=== PATIENT | male | born 1975 | race Caucasian/White ===

== ENCOUNTER 2018-09-04 19:22 | Outpatient (REF) | payer BC, SELFPAY ==
[2018-09-04 20:00] LABS: Abs Immature Grans 0.02 k/cumm (0.0-0.09); Absolute Basophil Count 0.03 k/cumm (0.0-0.2); Absolute Eosinophil Count 0.12 k/cumm (0.0-0.7); Absolute Lymphocyte Count 2.11 k/cumm (1.2-3.4); Absolute Monocyte Count 0.53 k/cumm (0.11-0.7); Basophils % 0.4; Eosinophils % 1.6; HGB 16.3 g/dL (13.5-17.5); Immature Grans % 0.3; Lymphocytes % 27.4; Mean Corp. HGB Concentration 34.7 g/dL (32.0-36.0); Mean Corpuscular Hemoglobin 30.8 pg (27.0-33.0); Mean Corpuscular Volume 88.7 fL (80-95); Mean Platelet Volume 10.6 fL (8.0-11.0); Monocytes % 6.9; Neutrophils % 63.4; Platelet Count 278 x1000/uL (130-400); RBC Distribution Width 13.3 % (11.8-14.1); White Blood Cell Count 7.71 k/cumm (4.4-10.8)
[2018-09-04 20:42] LABS: Anion Gap 11.3 mmol/L (3-11); BUN 19 mg/dL (7-18); CO2 27.7 mmol/L (21.0-32.0); Calcium 9.4 mg/dL (8.5-10.1); Chloride 104 mmol/L (98-107); Glucose 112 mg/dL (70-100); Potassium 3.7 mmol/L (3.5-5.1); Sodium 143 mmol/L (136-145); TSH (W/Ref FT4) 1.24 uIU/mL (0.358-3.74); Vitamin B12 586 pg/mL (193-986)
[2018-09-04 20:50] LABS: Folate > 20.0 ng/mL (8.6-20.0)
== END 2018-09-04 19:42 ==
LOC: NCHCN 19:22
PROVIDERS: PCP Nurse Practitioner; Visit Provider Nurse Practitioner Family
DX: R20.2 Paresthesia of skin (principal)
CPT/HCPCS: 80048; 82607; 82746; 84443; 85025

== ENCOUNTER 2019-07-20 13:52 | Emergency (ER) | payer BC, SELFPAY ==
[2019-07-20 14:06] VITALS: BP 133/76; PULSE 62; RESP 18; TEMP 36.6; O2SAT 97
--- NOTE | 2019-07-20 14:22 | ED.GENADUL_ITS ---
Discharge Plan Disposition Patient Disposition: HOME Discharge Details Chief Complaint: Orthopedic Clinical Impression: Hand pain, right, Pain of right forearm, Skin callus Primary Care Provider: Maria Del Carmen Redd ED Provider: Robert Schmidt Home Meds and New Rx's Prescriptions: No Action multivitamin [Daily Multi-Vitamin] 1 EACH tablet 1 tab PO DAILY RF: 0 Discharge Instructions Additional Instructions: Please use hand moisturizer daily for skin cracking and callus. Use wrist splint over the next 1 to 2 weeks. Avoid heavy lifting and use of the right hand for the next 1 week. Please contact your primary care physician to arrange follow-up. Return to the ER immediately for any worsening or new concerning symptoms. Stand Alone Forms: Work Release Referrals: Maria Del Carmen Redd [Primary Care Provider] - Discharge Data Discharge Date/Time-TO BE ENTERED AT DEPARTURE: 07/20/19 14:37 Medical Decision Making 44-year-old male here with right hand, wrist and forearm discomfort since waking yesterday. No inflammatory changes. No signs of infection. Neurovascular intact distally. 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 Suspect this is musculoskeletal strain sprain versus pain from his significant skin cracking calluses of his palm. I discussed using moisturizer and barrier protection to prevent further callus of his hand. I will provide wrist splint and encouraged him to rest his hand and wrist over the next week. Patient was encouraged to return immediately for any worsening or new concerning symptoms. HPI General Mode of arrival: ambulatory . Date/Time Provider Initiated Documentation: 07/20/19 14:10 . Limitations to Documentation: no limitations . Information obtained by: patient . HPI Narrative: 44-year-old male here with right hand, wrist and forearm discomfort since waking yesterday. Pain is localized to right palm and seems to radiate into his wrist and forearm. Pain is moderate. Worse with movement of his wrist and hand. No associated fever. He does note some callus formation of his right palm. 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 No direct trauma. Related Data Home Medications Medication Instructions Recorded Confirmed multivitamin [Daily Multi-Vitamin] 1 tab PO DAILY 04/06/13 07/20/19 Allergies Allergy/AdvReac Type Severity Reaction Status Date / Time calcium carbonate [From Tums] Allergy Mild Hives Unverified 07/20/19 14:14 General Stated Complaint: Orthopedic TASHI: 3 Review of Systems Constitutional Constitutional: Denies fever(s) Musculoskeletal Musculoskeletal: Reports as per HPI and Denies numbness Integumentary/Breasts Skin/Breast: Reports as per HPI Neurologic Neurologic: Denies focal weakness and Denies numbness PFSH Social History Smoking/Tobacco Use Status: Never Alcohol Intake: never Drug use: Never Do you feel safe at home: Yes Do you feel safe in your relationship?: Yes Exam Const General: cooperative and no acute distress HENMT Mouth: moist mucous membranes Cardio Rate: regular rate and not tachycardic Rhythm: regular rhythm Skin General skin exam: no rashes or lesions noted Neuro General: alert, awake, oriented x3 and tone normal Extrem General: no edema Right upper extremity: elbow/forearm Details: normal to inspection, wrist Details: normal to inspection and hand Details: neuromotor exam normal, neurosensory exam normal, tendon exam normal, vascular exam Details: radial pulse present Details: 2+, no swelling and other (callous rt palm); no unusual warmth Course Vital Signs Vital signs: Vital Signs Temperature 36.6 C 07/20/19 14:06 Pulse 62 07/20/19 14:06 Respiratory Rate 18 07/20/19 14:06 Blood Pressure 133/76 07/20/19 14:06 Pulse Oximetry 97 07/20/19 14:06 Temperature 36.6 C 07/20/19 14:06 Temperature Source Temporal Artery Scan 07/20/19 14:06 Pulse 62 07/20/19 14:06 Respiratory Rate 18 07/20/19 14:06 Respiratory Effort Non-Labored 07/20/19 14:12 Blood Pressure 133/76 07/20/19 14:06 Blood Pressure Position Sitting 07/20/19 14:06 Pulse Oximetry 97 07/20/19 14:06 Oxygen Delivery Method Room Air 07/20/19 14:06 Oxygen Flow Rate 0 07/20/19 14:06 Pain Level 8 07/20/19 14:13
== END 2019-07-20 14:37 | disposition home or self-care (01) ==
PROVIDERS: Emergency Provider Student in an Organized Health Care Education/Training Program; PCP Nurse Practitioner
DX: M79.631 Pain in right forearm (principal); M25.531 Pain in right wrist; L84 Corns and callosities
CPT/HCPCS: 99282

== ENCOUNTER 2019-08-25 15:46 | Emergency (ER) | payer BC, SELFPAY ==
[2019-08-25 15:49] VITALS: BP 125/71; PULSE 110; RESP 26; TEMP 39; O2SAT 97
[2019-08-25 16:19] LABS: Abs Immature Grans 0.01 k/cumm (0.0-0.09); Absolute Basophil Count 0.01 k/cumm (0.0-0.2); Absolute Lymphocyte Count 0.71 k/cumm (1.2-3.4); Absolute Monocyte Count 0.55 k/cumm (0.11-0.7); Absolute Neutrophil Count 3.45 k/cumm (1.2-6.7); Basophils % 0.2; HCT 43.5 % (40.0-50.0); Immature Grans % 0.2 %; Mean Corp. HGB Concentration 34.5 g/dL (32.0-36.0); Mean Corpuscular Hemoglobin 30.2 pg (27.0-33.0); Mean Corpuscular Volume 87.7 fL (80-95); Mean Platelet Volume 9.9 fL (8.0-11.0); Monocytes % 11.6; Platelet Count 213 x1000/uL (130-400); RBC 4.96 m/cumm (4.50-6.00); RBC Distribution Width 13.4 % (11.8-14.1); White Blood Cell Count 4.73 k/cumm (4.4-10.8)
[2019-08-25 16:33] LABS: PTT Activated 28.8 sec (21.0-31.4); Prothrombin Time 10.4 sec (9.3-11.0)
--- NOTE | 2019-08-25 16:33 | ED.GENADUL_ITS ---
Discharge Plan Disposition Patient Disposition: HOME Condition: Improving Discharge Details Chief Complaint: GenMedical Clinical Impression: Gastroenteritis, Fever, Viral syndrome Primary Care Provider: Maria Del Carmen Redd ED Provider: Vicki Petersen Home Meds and New Rx's Prescriptions: No Action multivitamin [Daily Multi-Vitamin] 1 EACH tablet 1 tab PO DAILY RF: 0 Discharge Instructions Instructions: Fever in Adults (ED), Gastroenteritis (ED), Viral Syndrome (ED) Additional Instructions: Drink plenty of fluids and get plenty of rest. Alternate tylenol and motrin as needed and directed for pain. Follow-up with your primary care doctor in 1 week. Return to the emergency department with any worsening or new concerning symptoms. 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 He admits to fever 103 at home today. Has not taken any medications for this. He also admits to a few episodes of watery brown diarrhea but denies any rectal bleeding. He admits to cough with sputum of unknown color, intermittent shortness of breath and substernal chest pain. He denies any chest pain at present. Temp 102.2 on arrival. Heart rate 110s. Respirations mid 20s. Oxygen saturation 97% on room air. Normal ENT exam. Lungs clear throughout. Abdomen soft and nontender. No meningeal signs. Differential diagnosis includes influenza, viral syndrome, pneumonia, myocarditis. Patient had IV and labs drawn on arrival due to his history of myocarditis. Will obtain flu swab, give bolus IV fluids, Toradol and Tylenol and reassess. Do not see indication for chest x-ray at this time as he has normal oxygen saturation if flu positive. 1820 --labs and imaging reviewed. Labs unremarkable. Normal white blood cell count. Troponin negative. D-dimer negative. Flu negative. Chest x-ray negative. Patient reassessed -he is complaining of return of sweats and chills. He is complaining of some lower abdominal pain. He is diffusely tender. In the setting of diarrhea, could be viral, but as no clear source of fever, will obtain CT chest and abdomen. He denied any sore throat earlier but states he claros d sore throat yesterday. Will obtain a rapid strep. Will give another liter IV fluids. 2029 --CT reviewed and notes negative chest, with possible infectious versus inflammatory enteritis. Rapid strep negative. Urinalysis negative. Patient reassessed -he states he feels much better and feels good to go home. Advised to drink plenty of fluids, get plenty of rest. Advised to follow up with the primary care doctor for re-evaluation. Usual and customary return precautions given prior to discharge. Medical Records Medical records reviewed: Yes I reviewed the patient's medical records. Imaging Data Radiologic Study: Radiologist's impression: XR Chest, 2 Views Exam date and time: 08/25/2019 5:30 PM Age: 44 years old Clinical indication: Other: Fever, cough, chest pain, SOB, R/O pneumonia TECHNIQUE: Imaging protocol: XR of the chest Views: 2 views. COMPARISON: CR CHEST 2 VIEWS PA,LAT 12/25/2015 11:22 AM FINDINGS: Lungs: Unremarkable. No consolidation. Pleural space: Unremarkable. No pleural effusion. No pneumothorax. Heart/Mediastinum: Unremarkable. No cardiomegaly. Bones/joints: Unremarkable. IMPRESSION: No acute findings. CT Chest With Contrast Exam date and time: 08/25/2019 7:16 PM Age: 44 years old Clinical indication: Abdominal pain; Localized; Left lower quadrant (llq); Other: Luq abd pain only; Patient HX: Fever, SOB, luq abd pain, diarrhea TECHNIQUE: Imaging protocol: Computed tomography of the chest with intravenous contrast. COMPARISON: CR XR CHEST 2V PA LATERAL 08/25/2019 5:30 PM FINDINGS: Lungs: Bibasilar atelectasis/scar. Lungs are otherwise clear. Pleural space: Unremarkable. No pneumothorax. No pleural effusion. Heart: Unremarkable. No cardiomegaly. No pericardial effusion. Aorta: The aorta is normal. Lymph nodes: No adenopathy. Bones/joints: Unremarkable. No acute fracture. Soft tissues: Unremarkable. IMPRESSION: Unremarkable chest CT. PROCEDURE INFORMATION: Exam: CT Abdomen And Pelvis With Contrast Exam date and time: 08/25/2019 7:16 PM Age: 44 years old Clinical indication: Abdominal pain; Localized; Left lower quadrant (llq); Other: Luq abd pain only; Patient HX: Fever, SOB, luq abd pain, diarrhea TECHNIQUE: Imaging protocol: Computed tomography of the abdomen and pelvis with intravenous contrast. COMPARISON: CR XR CHEST 2V PA LATERAL 08/25/2019 5:30 PM FINDINGS: Liver: The liver is normal. Gallbladder and bile ducts: The gallbladder is normal. Pancreas: The pancreas is normal. Spleen: The spleen is normal. Adrenals: The adrenal glands are normal. Kidneys and ureters: The kidneys are normal. Stomach and bowel: Few loops of mildly thickened jejunum in the left hemiabdomen without surrounding fat stranding/edema. Unremarkable large bowel. Unremarkable stomach. Appendix: A normal appendix is identified. Intraperitoneal space: Unremarkable. No free air. No significant fluid collection. Vasculature: The aorta is normal. Lymph nodes: Unremarkable. No enlarged lymph nodes. Bladder: The bladder is normal. Reproductive: Unremarkable as visualized. Bones/joints: Unremarkable. No acute fracture. Soft tissues: Unremarkable. IMPRESSION: Few mildly thickened loops of jejunum in the left hemiabdomen without surrounding inflammation may be due to incomplete bowel distention versus mild infectious or inflammatory enteritis. Lab Data Lab results reviewed: Yes I reviewed the patient's lab results. Labs: 08/25/19 16:59 Nose Influenza Types A,B Antigen - Final 08/25/19 16:00 Blood Blood Culture - Pending 08/25/19 16:00 Blood Blood Culture - Pending Laboratory Tests Range/Units 08/25/19 08/25/19 08/25/19 16:00 16:00 16:00 WBC (4.4-10.8) k/cumm 4.73 RBC (4.50-6.00) m/cumm 4.96 Hgb (13.5-17.5) g/dL 15.0 Hct (40.0-50.0) % 43.5 MCV (80-95) fL 87.7 MCH (27.0-33.0) pg 30.2 MCHC (32.0-36.0) g/dL 34.5 RDW (11.8-14.1) % 13.4 Plt Count (130-400) x1000/uL 213 MPV (8.0-11.0) fL 9.9 Immature Gran % % 0.2 Neutrophils % 73.0 Lymphocytes % 15.0 Monocytes % 11.6 Eosinophils % 0.0 Basophils % 0.2 Absolute Neutrophils (1.2-6.7) k/cumm 3.45 Absolute Lymphocytes (1.2-3.4) k/cumm 0.71 L Absolute Monocytes (0.11-0.7) k/cumm 0.55 Absolute Eosinophils (0.0-0.7) k/cumm 0.00 Absolute Basophils (0.0-0.2) k/cumm 0.01 PT (9.3-11.0) sec 10.4 INR (0.9-1.1) 1.0 APTT (21.0-31.4) sec 28.8 D-Dimer (<500) ng/mlFEU Sodium (136-145) mmol/L 137 Potassium (3.5-5.1) mmol/L 3.6 Chloride (98-107) mmol/L 102 Carbon Dioxide (21.0-32.0) mmol/L 21.6 Anion Gap (3-11) mmol/L 13.4 H BUN (7-18) mg/dL 12 Creatinine (0.70-1.30) mg/dL 1.13 Estimated GFR/1.73 m2 (mL/min/1.73m2) >= 60.00 Glucose (74-106) mg/dL 100 Calcium (8.5-10.1) mg/dL 8.3 L Magnesium (1.8-2.4) mg/dL 1.5 L Total Bilirubin (0.2-1.0) mg/dL 0.3 AST (15-37) U/L 28 ALT (16-63) U/L 39 Alkaline Phosphatase (46-116) U/L 72 Troponin I (<0.06) ng/Ml < 0.05 Total Protein (6.4-8.2) g/dL 7.3 Albumin (3.4-5.0) g/dL 3.8 Lipase (73-393) U/L Range/Units 08/25/19 08/25/19 16:00 16:00 WBC (4.4-10.8) k/cumm RBC (4.50-6.00) m/cumm Hgb (13.5-17.5) g/dL Hct (40.0-50.0) % MCV (80-95) fL MCH (27.0-33.0) pg MCHC (32.0-36.0) g/dL RDW (11.8-14.1) % Plt Count (130-400) x1000/uL MPV (8.0-11.0) fL Immature Gran % % Neutrophils % Lymphocytes % Monocytes % Eosinophils % Basophils % Absolute Neutrophils (1.2-6.7) k/cumm Absolute Lymphocytes (1.2-3.4) k/cumm Absolute Monocytes (0.11-0.7) k/cumm Absolute Eosinophils (0.0-0.7) k/cumm Absolute Basophils (0.0-0.2) k/cumm PT (9.3-11.0) sec INR (0.9-1.1) APTT (21.0-31.4) sec D-Dimer (<500) ng/mlFEU 453 Sodium (136-145) mmol/L Potassium (3.5-5.1) mmol/L Chloride (98-107) mmol/L Carbon Dioxide (21.0-32.0) mmol/L Anion Gap (3-11) mmol/L BUN (7-18) mg/dL Creatinine (0.70-1.30) mg/dL Estimated GFR/1.73 m2 (mL/min/1.73m2) Glucose (74-106) mg/dL Calcium (8.5-10.1) mg/dL Magnesium (1.8-2.4) mg/dL Total Bilirubin (0.2-1.0) mg/dL AST (15-37) U/L ALT (16-63) U/L Alkaline Phosphatase (46-116) U/L Troponin I (<0.06) ng/Ml Total Protein (6.4-8.2) g/dL Albumin (3.4-5.0) g/dL Lipase (73-393) U/L 155 HPI General Mode of arrival: ambulatory . Date/Time Provider Initiated Documentation: 08/25/19 16:07 . Limitations to Documentation: no limitations . Information obtained by: patient . History of Present Illness 44 year old M presents to the emergency department with the chief complaint of Fever, cough, chest pain, shortness of breath, diarrhea and body aches, Quality is described as sharp, and is localized to the chest (Intermittent, sharp, without radiation; none at present). Patient started experiencing this day(s) (2) and it has been constant. No relieving factors improve symptom(s), No exacerbating factors reported . Patient notes chest pain, cough (With sputum, unknown color), fever/chills, headaches, loss of appetite and shortness of breath; denies malaise, nausea/vomiting, rash, seizure, syncope and weakness. Patient did receive the following treatments prior to arrival, none Related Data Home Medications Medication Instructions Recorded Confirmed multivitamin [Daily Multi-Vitamin] 1 tab PO DAILY 04/06/13 07/20/19 Allergies Allergy/AdvReac Type Severity Reaction Status Date / Time calcium carbonate [From Tums] Allergy Mild Hives Unverified 07/20/19 14:14 General Stated Complaint: Chest Pain TASHI: 2 Review of Systems All systems reviewed & are unremarkable except as noted in HPI and below Constitutional Constitutional: Reports as per HPI, Reports chills and Reports fever(s) Eyes Eyes: Denies blurry vision ENT Ears, Nose, Mouth, and Throat: Denies dizziness, Denies sore throat and Denies throat swelling Cardiovascular Cardiovascular: Reports chest pain and Reports dyspnea Respiratory Respiratory: Reports cough and Reports dyspnea Gastrointestinal Gastrointestinal: Denies abdominal pain, Denies diarrhea and Denies vomiting Genitourinary Genitourinary: Denies hematuria and Denies dysuria Musculoskeletal Musculoskeletal: Denies back pain and Denies numbness Integumentary/Breasts Skin/Breast: Denies lesions and Denies rash Neurologic Neurologic: Denies dizziness, Denies focal weakness and Denies numbness Allergic/Immunologic Allergic/Immunologic: Denies throat swelling [facility] Medical History Myocarditis (Acute) Surgical History History of ear surgery (Acute) insect removal Social History Smoking/Tobacco Use Status: Never Alcohol Intake: never Drug use: Never Substance use type: does not use Do you feel safe at home: Yes Do you feel safe in your relationship?: Yes Exam Const General: cooperative, healthy appearing and no acute distress HENMT Head: normal to inspection Ears: hearing grossly normal bilaterally, external ears normal and TM's normal bilaterally General nose exam: external nose normal Face and sinus: normal facial exam Mouth: oral mucosae normal Throat: posterior oropharynx normal, uvula midline and no peritonsillar masses Eyes General: appearance normal, both eyes and all related structures EOM: EOM intact bilaterally Neck Neck: normal visual inspection and No submandibular swelling Lymphatic: no lymphadenopathy noted Chest Chest: normal inspection of the chest and no tenderness Resp Effort & Inspection: normal respiratory effort and able to speak in complete sentences Auscultation: clear to auscultation bilaterally Cardio Rate: regular rate Rhythm: regular rhythm GI Inspection: normal to inspection Palpation: soft, not firm, not rigid and nontender Auscultation: normal bowel sounds Back/Spine/Pelvis Pelvis: no pain with anterior-posterior compression Skin General skin exam: no rashes or lesions noted Neuro General: alert, awake and oriented x3 Cognition: normal cognition Speech: speech normal Motor: muscle tone normal throughout Sensory Exam: no sensory deficits noted Extrem General: normal to inspection, full ROM, normal capillary refill, no calf tenderness bilaterally and no edema Psych Appearance: grossly normal Mental Status: mental status grossly normal Speech and Movement: speech and movement normal Affect: normal affect Course Vital Signs Vital signs: Vital Signs Temperature 102.2 F H 08/25/19 15:49 Pulse 110 H 08/25/19 15:49 Respiratory Rate 26 H 08/25/19 15:49 Blood Pressure 125/71 08/25/19 15:49 Pulse Oximetry 97 08/25/19 15:49 Temperature 102.2 F H 08/25/19 15:49 Temperature Source Skin 08/25/19 15:49 Pulse 110 H 08/25/19 15:49 Respiratory Rate 26 H 08/25/19 15:49 Blood Pressure 125/71 08/25/19 15:49 Blood Pressure Position Sitting 08/25/19 15:49 Pulse Oximetry 97 08/25/19 15:49 Oxygen Delivery Method Room Air 08/25/19 15:49 Oxygen Flow Rate 0 08/25/19 15:49 Pain Level 0 08/25/19 15:49 Lab/Test Results Lab/Test Results: 08/25/19 16:00 Blood Blood Culture - Pending 08/25/19 16:00 Blood Blood Culture - Pending Laboratory Tests Range/Units 08/25/19 16:00 WBC (4.4-10.8) k/cumm 4.73 RBC (4.50-6.00) m/cumm 4.96 Hgb (13.5-17.5) g/dL 15.0 Hct (40.0-50.0) % 43.5 MCV (80-95) fL 87.7 MCH (27.0-33.0) pg 30.2 MCHC (32.0-36.0) g/dL 34.5 RDW (11.8-14.1) % 13.4 Plt Count (130-400) x1000/uL 213 MPV (8.0-11.0) fL 9.9 Immature Gran % % 0.2 Neutrophils % 73.0 Lymphocytes % 15.0 Monocytes % 11.6 Eosinophils % 0.0 Basophils % 0.2 Absolute Neutrophils (1.2-6.7) k/cumm 3.45 Absolute Lymphocytes (1.2-3.4) k/cumm 0.71 L Absolute Monocytes (0.11-0.7) k/cumm 0.55 Absolute Eosinophils (0.0-0.7) k/cumm 0.00 Absolute Basophils (0.0-0.2) k/cumm 0.01
[2019-08-25 16:36] LABS: ALT 39 U/L (16-63); AST 28 U/L (15-37); Albumin 3.8 g/dL (3.4-5.0); Alkaline Phosphatase 72 U/L (46-116); Anion Gap 13.4 mmol/L (3-11); BUN 12 mg/dL (7-18); Bilirubin, Total 0.3 mg/dL (0.2-1.0); CO2 21.6 mmol/L (21.0-32.0); CREATININE 1.13 mg/dL (0.70-1.30); Calcium 8.3 mg/dL (8.5-10.1); Chloride 102 mmol/L (98-107); Glucose 100 mg/dL (74-106); Magnesium 1.5 mg/dL (1.8-2.4); Potassium 3.6 mmol/L (3.5-5.1); Sodium 137 mmol/L (136-145); Total Protein 7.3 g/dL (6.4-8.2)
[2019-08-25 16:37] LABS: Troponin I < 0.05 ng/Ml (<0.06)
[2019-08-25] MEDS: Ketorolac 30 MG/ML VIAL IVP (16:48)
[2019-08-25] MEDS: Normal Saline 1,000 ML 1000 ML IV ×2 (16:48→18:36)
[2019-08-25] MEDS: Acetaminophen 500 MG TAB 1000 MG PO (16:48)
[2019-08-25 16:49] VITALS: RESP 16
--- NOTE | 2019-08-25 17:30 | DI.RAD_ITS ---
EXAM: XR CHEST 2V PA LATERAL CLINICAL HISTORY: fever, cough, chest pain, sob, r/o pneumonia. TECHNIQUE: 2D digital imaging was performed. COMPARISON: CHEST 2 VIEWS PA,LAT from 12/25/2015 FINDINGS: LUNGS: Clear. No pleural abnormality seen. HEART: Normal. MEDIASTINUM: Normal. OTHER FINDINGS:Normal. BONE:Normal. IMPRESSION: No acute pulmonary findings.
--- NOTE | 2019-08-25 17:39 | DI.VRAD_ITS ---
PROCEDURE INFORMATION: Exam: XR Chest, 2 Views Exam date and time: 08/25/2019 5:30 PM Age: 44 years old Clinical indication: Other: Fever, cough, chest pain, SOB, R/O pneumonia TECHNIQUE: Imaging protocol: XR of the chest Views: 2 views. COMPARISON: CR CHEST 2 VIEWS PA,LAT 12/25/2015 11:22 AM FINDINGS: Lungs: Unremarkable. No consolidation. Pleural space: Unremarkable. No pleural effusion. No pneumothorax. Heart/Mediastinum: Unremarkable. No cardiomegaly. Bones/joints: Unremarkable. IMPRESSION: No acute findings. Dictated and Authenticated by: Joseph Saravia MD. Ordering:KARISHMA Cohen MD
[2019-08-25 18:06] LABS: D-Dimer 453 ng/mlFEU (<500)
[2019-08-25 18:36] VITALS: BP 107/71; PULSE 82; RESP 14; TEMP 36.9; O2SAT 95
[2019-08-25 18:46] LABS: Lipase 155 U/L (73-393)
--- NOTE | 2019-08-25 19:11 | DI.CT_ITS ---
EXAM: CT CHEST/ABD/PEL W CLINICAL HISTORY: cough, fever, sob, lower abd pain, diarrhea. TECHNIQUE: Imaging Protocol: Axial computed tomography images with coronal and sagittal reformatted images were created and reviewed CONTRAST MATERIAL: Intravenous: Omnipaque 350 Contrast volume:100 mL Oral: No COMPARISON: No exams were available for comparison FINDINGS: CHEST: Thyroid: Unremarkable as visualized. Tracheobronchial tree: Patent where visualized. Mediastinum and Susana: No dominant adenopathy or fluid collection. Pulmonary parenchyma: No consolidation or dominant measurable mass. No architectural distortion. Dep endent atelectasis. Pleura: No effusion or pneumothorax. Lymph nodes: Within normal limits. Aorta: Thoracic portion non-dilated. Heart: No cardiomegaly or pericardial effusion. No coronary artery calcifications. Bones: Mild degenerative change. ABDOMEN: Liver: Normal density. No measurable mass. Gallbladder and biliary tract: No radiodense calculus or dilation. Pancreas: Normal density, no abnormal calcifications or inflammatory process. Spleen: Normal. Kidneys: Normal size, contour and axis. No radiodense stones or obstructive uropathy. No masses seen. Adrenal glands: No masses seen. Aorta: Abdominal portion non-dilated. Lymph nodes: Within normal limits. PELVIS: Bladder: Symmetric distention, no gross wall thickening. Bowel: There is fluid seen within the colon which can be seen with a diarrheal illness. No significa nt pericolonic inflammatory changes are seen. There is a normal appendix. There is mild bowel wall thickening seen in loops of small bowel in the left abdomen and enteritis cannot be excluded. Diver ticulosis of the colon is seen but no evidence of acute diverticulitis. Peritoneal cavity: No ascites, collection or mesenteric inflammatory response. Bones: Within normal limits. Reproductive organs: Within normal limits. IMPRESSION: 1. Mild bowel wall thickening in small bowel loops in the left abdomen which can be seen with an infl ammatory or infectious enteritis. 2. No acute pulmonary process. DATA REPOSITORY: All CT scans at this facility are submitted to the National Radiology Data Registry (NRDR) Dose Index Registry (DIR) with the [employer] ([employer]). RADIATION OPTIMIZATION: All CT scans at this facility use at least one of these dose optimization te chniques: automated exposure control; mA and/or kV adjustment per patient size (includes targeted exa ms where dose is matched to clinical indication); or iterative reconstruction.
[2019-08-25] MEDS: Omnipaque 350 MG/ML 100 ML BTL IJ (19:28)
[2019-08-25 19:42] VITALS: RESP 14
--- NOTE | 2019-08-25 19:45 | DI.VRAD_ITS ---
PROCEDURE INFORMATION: Exam: CT Chest With Contrast Exam date and time: 08/25/2019 7:16 PM Age: 44 years old Clinical indication: Abdominal pain; Localized; Left lower quadrant (llq); Other: Luq abd pain only; Patient HX: Fever, SOB, luq abd pain, diarrhea TECHNIQUE: Imaging protocol: Computed tomography of the chest with intravenous contrast. COMPARISON: CR XR CHEST 2V PA LATERAL 08/25/2019 5:30 PM FINDINGS: Lungs: Bibasilar atelectasis/scar. Lungs are otherwise clear. Pleural space: Unremarkable. No pneumothorax. No pleural effusion. Heart: Unremarkable. No cardiomegaly. No pericardial effusion. Aorta: The aorta is normal. Lymph nodes: No adenopathy. Bones/joints: Unremarkable. No acute fracture. Soft tissues: Unremarkable. IMPRESSION: Unremarkable chest CT. PROCEDURE INFORMATION: Exam: CT Abdomen And Pelvis With Contrast Exam date and time: 08/25/2019 7:16 PM Age: 44 years old Clinical indication: Abdominal pain; Localized; Left lower quadrant (llq); Other: Luq abd pain only; Patient HX: Fever, SOB, luq abd pain, diarrhea TECHNIQUE: Imaging protocol: Computed tomography of the abdomen and pelvis with intravenous contrast. COMPARISON: CR XR CHEST 2V PA LATERAL 08/25/2019 5:30 PM FINDINGS: Liver: The liver is normal. Gallbladder and bile ducts: The gallbladder is normal. Pancreas: The pancreas is normal. Spleen: The spleen is normal. Adrenals: The adrenal glands are normal. Kidneys and ureters: The kidneys are normal. Stomach and bowel: Few loops of mildly thickened jejunum in the left hemiabdomen without surrounding fat stranding/edema. Unremarkable large bowel. Unremarkable stomach. Appendix: A normal appendix is identified. Intraperitoneal space: Unremarkable. No free air. No significant fluid collection. Vasculature: The aorta is normal. Lymph nodes: Unremarkable. No enlarged lymph nodes. Bladder: The bladder is normal. Reproductive: Unremarkable as visualized. Bones/joints: Unremarkable. No acute fracture. Soft tissues: Unremarkable. IMPRESSION: Few mildly thickened loops of jejunum in the left hemiabdomen without surrounding inflammation may be due to incomplete bowel distention versus mild infectious or inflammatory enteritis. Dictated and Authenticated by: Joseph Saravia MD. Ordering:KARISHMA Cohen MD
[2019-08-25 20:28] VITALS: BP 107/65; PULSE 79; RESP 14; TEMP 36.7; O2SAT 96
[2019-08-25 20:45] LABS: Bilirubin Negative (Negative); Blood Trace-intact (Negative); Clarity Clear (Clear); Glucose Negative (Negative); Ketones Negative (Negative); Leukocyte Esterase Negative (Negative); Nitrite Negative (Negative); Urobilinogen 0.2 EU/dL (Up TO 0.2)
[2019-08-25 21:00] LABS: Bacteria Negative HPF (Negative); C & S Indicated? No; Casts Negative LPF (Negative); Crystals Negative HPF (Negative); Epithelial Cells Negative HPF (Negative); Mucus Negative (Negative); Other Cells Negative (Negative); WBC Negative HPF (0-5)
[2019-08-25] MEDS: Magnesium Oxide 400 MG TAB PO (21:03)
== END 2019-08-25 21:25 | disposition home or self-care (01) ==
PROVIDERS: Emergency Provider Physician Assistant; PCP Nurse Practitioner
DX: A08.4 Viral intestinal infection, unspecified (principal); R50.9 Fever, unspecified; R05 Cough; R06.02 Shortness of breath; B34.9 Viral infection, unspecified; I51.4 Myocarditis, unspecified
CPT/HCPCS: 36415; 74177; 80053; 83690; 87040; 87449; 87880; 93005; 96361; 96374; 99285; 71046; 71260; 81003; 81015; 83735; 84484; 85025; 85379; 85610; 85730; 93010; J1885; J3490

== ENCOUNTER 2020-02-27 20:45 | Outpatient (REF) | payer BC, SELFPAY ==
[2020-02-27 21:46] LABS: Calculated LDL 207 mg/dL (<100); Cholesterol 282 mg/dL (<200); HDL Cholesterol 41 mg/dL (40-60); Hemoglobin A1C 5.6 % (3.8-5.6); Triglyceride 173 mg/dL (<150)
== END 2020-02-27 21:05 ==
LOC: LBN 20:45
PROVIDERS: PCP Nurse Practitioner; Visit Provider Nurse Practitioner
DX: Z13.1 Encounter for screening for diabetes mellitus (principal); Z13.6 Encounter for screening for cardiovascular disorders; Z00.00 Encounter for general adult medical examination without abnormal findings
CPT/HCPCS: 80061; 83036

== ENCOUNTER 2020-08-24 02:31 | Outpatient (CLI) | payer BC, SELFPAY ==
[2020-08-25 12:34] LABS: COVID-19 RT-PCR UVMMC Result Negative (Negative)
== END 2020-08-24 02:32 | disposition home or self-care (01) ==
LOC: LBO 02:31
PROVIDERS: PCP Nurse Practitioner; Visit Provider Nurse Practitioner
DX: Z11.52 Encounter for screening for COVID-19 (principal); Z01.818 Encounter for other preprocedural examination
CPT/HCPCS: U0003

== ENCOUNTER 2021-01-04 10:29 | Outpatient (CLI) | payer BC, SELFPAY ==
[2021-01-05 14:25] LABS: COVID-19 RT-PCR UVMMC Result Negative (Negative)
== END 2021-01-04 10:30 | disposition home or self-care (01) ==
PROVIDERS: PCP Nurse Practitioner; Visit Provider Nurse Practitioner
DX: Z20.822 Contact with and (suspected) exposure to COVID-19 (principal)
CPT/HCPCS: U0003

== ENCOUNTER 2022-08-24 03:26 | Outpatient (CLI) | payer BC, SELFPAY ==
[2022-08-24 12:50] LABS: HCT 45.9 % (40.0-50.0); HGB 15.2 g/dL (13.5-17.5); MCH 29.9 pg (27.0-33.0); MCHC 33.1 % (32.0-36.0); MCV 90 fL (80-95); MPV 10.5 fL (8.0-11.0); Platelet Count 292 10^3/uL (130-400); RBC 5.09 10^6/uL (4.36-5.78); RDW 13.5 % (11.8-14.1); RDW-SD 44.9 fL; WBC 5.32 10^3/uL (4.4-10.8)
[2022-08-24 13:01] LABS: ALT 35 U/L (16-63); AST 22 U/L (15-37); Albumin 4.1 g/dL (3.4-5.0); Alkaline Phosphatase 93 U/L (46-116); Anion Gap 4.8 mmol/L (3-11); BUN 18 mg/dL (7-18); Bilirubin, Total 0.6 mg/dL (0.2-1.0); CO2 29.2 mmol/L (21.0-32.0); CREATININE 1.2 mg/dL (0.70-1.30); Calcium 9.3 mg/dL (8.5-10.1); Calculated LDL 113 mg/dL (<100); Chloride 106 mmol/L (98-107); Cholesterol 177 mg/dL (<200); Estimated GFR 74.13 (mL/min/1.73m2); Glucose 117 mg/dL (74-106); HDL Cholesterol 54 mg/dL (40-60); Potassium 3.9 mmol/L (3.5-5.1); Sodium 140 mmol/L (136-145); Total Protein 7.6 g/dL (6.4-8.2); Triglyceride 54 mg/dL (<150)
[2022-08-24 13:12] LABS: Hemoglobin A1C 5.6 % (<5.7)
== END 2022-08-24 03:27 | disposition home or self-care (01) ==
LOC: LOS 03:26
PROVIDERS: PCP Nurse Practitioner Family; Visit Provider Nurse Practitioner Family
DX: E78.5 Hyperlipidemia, unspecified (principal); G47.33 Obstructive sleep apnea (adult) (pediatric); Z00.00 Encounter for general adult medical examination without abnormal findings
CPT/HCPCS: 36415; 80053; 80061; 85027; 83036

== ENCOUNTER 2023-03-21 05:17 | Emergency (ER) | payer BC, SELFPAY ==
--- NOTE | 2023-03-21 05:15 | DI.RAD_ITS ---
Exam(s) XR ANKLE RT COMPLETE EXAM: XR ANKLE RT COMPLETE CLINICAL HISTORY: pain in right lateral ankle, no trauma. TECHNIQUE: 2D digital imaging was performed. Three views. COMPARISON: No exams were available for comparison FINDINGS: BONES: No acute fracture is present. No bony destructive lesion is seen. Heel spurs. JOINTS: The ankle mortise is normally aligned. SOFT TISSUE: Mild swelling. IMPRESSION: No acute abnormality. DATA REPOSITORY: RADIATION DOSE DELIVERED:
[2023-03-21 05:20] VITALS: BP 102/62; PULSE 67; RESP 16; TEMP 36.6
--- NOTE | 2023-03-21 05:23 | ED.GENADUL_ITS ---
Discharge Plan Disposition Patient Disposition: Home Condition: Good Discharge Details Clinical Impression: Acute right ankle pain Primary Care Provider: Nany Vargas ED Provider: Phill Martin Home Meds and New Rx's Prescriptions: No Action atorvastatin 40 mg tablet 40 mg PO QPM Qty: 90 4RF multivitamin [Daily Multi-Vitamin] 1 EACH tablet 1 tab PO DAILY Discharge Instructions Instructions: Ankle Sprain (ED) Additional Instructions: At this time your x-ray shows no evidence of fracture. I suspect there is a component of a sprain of the ligaments. Please take Tylenol and Motrin as needed for pain. Please use the walking boot for the next week as your ankle heals/improves. If you notice any worsening of your symptoms, or any new symptoms such as vomiting, diarrhea, fever, chills, shortness of breath, chest pain, numbness, weakness, or fainting , please return immediately to the emergency department for reevaluation. Please follow up with your primary care provider as soon as possible for reassessment and reevaluation. As always, it was a pleasure participating in your medical care today. Stand Alone Forms: Work Release Referrals: Nany Vargas, ROSIO [Primary Care Provider] - Medical Decision Making 47-year-old male with no significant past medical history except for high cholesterol, obstructive sleep apnea, presents today for right ankle pain. Patient states that he woke up and his right ankle was hurting. He denies any falls or trauma. He denies any history of gout. Pain is made worse when he bears weight. Improved by nothing. No numbness or tingling otherwise. Pain is located in the right lateral aspect of his ankle. No fever or chills. No other complaints at this time. Exam demonstrates well-appearing male, ankle demonstrates no redness, swelling, or bruising or signs of injury. Minimal tenderness just inferior and anterior to the lateral malleolus over the area of the anterior talofibular ligament. There also appears to be a small fat pad in this area as well. Differential includes sprain, less likely fracture. Will give Tylenol and Motrin, get an x- ray, monitor closely and reassess. X-ray negative for fracture. Findings on x-ray imaging are not consistent with the location of the patient's pain. Suspect sprain. Will recommend Tylenol Motrin given ankle walking boot. Discussed red flags for which to return. I have extensively reviewed the treatment plan and discharge instructions with the patient and their family. I have addressed all patient concerns at this time. The patient and family was made aware of what symptoms to monitor for that would warrant a return to the emergency department. Discussed the plan with the patient and family, they demonstrate verbal understanding and agreement with our assessment and plan at this time. The documentation in this chart was dictated using Alex and Ani dictation software. Please excuse any dictation errors. FINDINGS: Bones/joints: No acute or suspicious osseous abnormalities. No articular abnormalities. Small plantar calcaneal spur. Small bony projection at the Achilles tendon insertion site. Soft tissues: Normal. IMPRESSION: 1. No acute findings. 2. Small plantar calcaneal spur. 3. Enthesopathy at the Achilles tendon insertion site. Thank you for allowing us to participate in the care of your patient. Dictated and Authenticated by: Kanika Girard MD 03/21/2023 6:18 AM Eastern Time ([place] & [place]) HPI General Date/Time Provider Initiated Documentation: 03/21/23 05:19 . HPI Narrative: 47-year-old male with no significant past medical history except for high cholesterol, obstructive sleep apnea, presents today for right ankle pain. Patient states that he woke up and his right ankle was hurting. He denies any falls or trauma. He denies any history of gout. Pain is made worse when he bears weight. Improved by nothing. No numbness or tingling otherwise. Pain is located in the right lateral aspect of his ankle. No fever or chills. No other complaints at this time. Related Data Home Medications Medication Instructions Recorded Confirmed multivitamin (Daily Multi-Vitamin 1 tab PO DAILY 04/06/13 08/01/22 tablet) atorvastatin 40 mg tablet 40 mg PO QPM #90 tabs 03/17/22 08/01/22 Previous Rx's Medication Instructions Recorded atorvastatin 40 mg tablet 40 mg PO QPM #90 tabs 03/17/22 Allergies Allergy/AdvReac Type Severity Reaction Status Date / Time calcium carbonate [From Tums] Allergy Mild Hives Verified 09/28/22 17:44 General TASHI: 2 Review of Systems All systems reviewed & are unremarkable except as noted in HPI and below PFSH All Active Problems (Updated 03/21/23 @ 06:01 by Phill Martin DO) Acute right ankle pain (Acute) ARIAN (obstructive sleep apnea) (Chronic) 08/2020- [facility] for sleep disorders Hyperlipidemia (Acute) Snoring (Acute) Medical History Family history of myotonic dystrophy Myocarditis 2017, no recurrence Surgical History History of ear surgery insect removal Family History Mother No problems noted. Father , 68 Heart disease Sister No problems noted. Brother No problems noted. Social History Smoking/Tobacco Use Status: Never Smoking risk assessment performed?: Yes Alcohol Intake: former Drug use: Never Substance use type: does not use Caregiver/Support person: No Household members: spouse Housing: house Communication Needs: None Do you need help understanding health information?: Never Pets and animals: No Sexually active: Yes Do you think of yourself as: straight/heterosexual Current gender identity: male What is your relationship status?: How often do you talk on the phone with friends or family?: decline to answer How often do you get together with friends or relatives?: decline to answer How often do you attend alevism or judaism services?: 1-3 times per year Do you belong to any clubs or organized social groups?: no Panel score (0-1 are the most socially isolated patients): 1 What type of physical activity do you participate in: none Frequency: does not exercise Angie/Restorationism: No preference Seatbelt use: always Helmet use: No Drive intox or ride w/intox show 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 3.ENT: Atraumatic external nose and ears. Moist MM. Neck: Symmetric, trachea midline, No thyromegaly. 4.CVS: +S1/S2, No murmurs or gallops. Peripheral pulses 2+ and equal in all extremities. Brisk capillary refill in all extremities. 5.RESP: Unlabored respiratory effort. Clear to auscultation bilaterally. No whe ezes rales or rhonchi 6.GI: Soft, Nontender/Nondistended, No hepatosplenomegaly. No guarding or rebound. 7.MSK: Normocephalic/Atraumatic, Extremities w/o deformity, minimal tenderness on the lateral malleolus of the right ankle and just inferior to this over the anterior talofibular ligament region. No redness, warmth, or deformity or swelling. Small fat pad noted over the lateral aspect of the ankle. Range of motion normal. Minimal pain with eversion and inversion. No pain with flexion and extension. 8.Skin: Warm, Dry. No rashes or lesions. 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 Sensation grossly intact, no focal neurologic deficits. 10.Psych: (AAO) x3. Appropriate mood and affect
[2023-03-21] MEDS: Acetaminophen 500 MG TAB 1000 MG PO (05:32)
[2023-03-21] MEDS: Ibuprofen 800 MG TAB PO (05:32)
--- NOTE | 2023-03-21 06:19 | DI.VRAD_ITS ---
PROCEDURE INFORMATION: Exam: XR Right Ankle Exam date and time: 03/21/2023 5:48 AM Age: 47 years old Clinical indication: Pain; Ankle; Right TECHNIQUE: Imaging protocol: Radiologic exam of the right ankle. Views: 3 or more views. COMPARISON: CR RIGHT FOOT COMPLETE 07/10/2017 7:04 PM FINDINGS: Bones/joints: No acute or suspicious osseous abnormalities. No articular abnormalities. Small plantar calcaneal spur. Small bony projection at the Achilles tendon insertion site. Soft tissues: Normal. IMPRESSION: 1. No acute findings. 2. Small plantar calcaneal spur. 3. Enthesopathy at the Achilles tendon insertion site. Dictated and Authenticated by: Kanika Girard MD. Ordering:ANA LILIA Pololck MD
== END 2023-03-21 07:22 | disposition home or self-care (01) ==
PROVIDERS: Emergency Provider Student in an Organized Health Care Education/Training Program; PCP Nurse Practitioner Family
DX: M25.571 Pain in right ankle and joints of right foot (principal); M77.31 Calcaneal spur, right foot; M76.61 Achilles tendinitis, right leg
CPT/HCPCS: 29515; 99283; 73610

== ENCOUNTER → 2023-03-23 10:45 | Outpatient (CLI) | payer BC, SELFPAY ==
--- NOTE | 2023-03-23 09:40 | DI.RAD_ITS ---
Exam(s) XR FOOT RT COMPLETE EXAM: XR FOOT RT COMPLETE CLINICAL HISTORY: pain and swelling, no trauma, rt foot pain, M79.671. TECHNIQUE: 2D digital imaging was performed. Three views. COMPARISON: CR RIGHT FOOT COMPLETE from 07/10/2017 FINDINGS: BONES: No acute fracture is present. No bony destructive lesion is seen. Small heel spurs. JOINTS: No dislocation present. No significant degenerative changes. SOFT TISSUE: Normal. IMPRESSION: Small heel spurs, otherwise negative. DATA REPOSITORY: RADIATION DOSE DELIVERED:
== END ==
PROVIDERS: PCP Nurse Practitioner Family; Visit Provider Nurse Practitioner Family
DX: M79.671 Pain in right foot (principal)
CPT/HCPCS: 73630

== ENCOUNTER 2023-12-12 07:45 | Day surgery (SDC) | payer BC, SELFPAY ==
[2023-12-12 07:50] VITALS: BP 107/72; PULSE 64; RESP 16; TEMP 36; O2SAT 97
[2023-12-12] MEDS: Lactated Ringers 1,000 ML 80 ML IV (08:18)
--- NOTE | 2023-12-12 08:26 | W.ANESPRE ---
General Info Date of Service Date Performed: 12/12/23 Height: 5 ft 7 in Weight: 93.7 kg Body Mass Index (BMI): 32.3 Surgical Procedure: Operation Date: 12/12/23 09:20 Proposed Procedure Side Surgeon tony Rosas MD Meds Allergies and Home Medications Allergies Allergy/AdvReac Type Severity Reaction Status Date / Time calcium carbonate [From Tums] Allergy Mild Hives Verified 12/12/23 08:07 Home Medication Medication Instructions Recorded multivitamin (Daily Multi-Vitamin 1 tab PO DAILY 04/06/13 tablet) atorvastatin 40 mg tablet See Rx Instructions .Route 08/06/23 .COMPLEX #90 tabs bisacodyl 5 mg tablet,delayed 5 mg PO ONCE #4 tabs 11/22/23 release (Dulcolax (bisacodyl)) polyethylene glycol 3350 17 17 g PO DAILY #238 grams 11/22/23 gram/dose oral powder Current Visit Medications: Current Medications Generic Name Dose Route Start Last Admin Trade Name Freq PRN Reason Stop Dose Admin Ringer's Solution 1,000 mls @ 80 mls/hr 12/12/23 06:00 12/12/23 08:18 IV 12/12/23 23:59 80 mls/hr INFUSION FLORENCIA Administration IV Miscellaneous Supplies 1 each 12/12/23 06:00 Iv Access IV 12/12/23 23:59 DIRECTED FLORENCIA Sodium Chloride 0 ml 12/12/23 06:00 Normal Saline Flush 10 Ml Syr IV 12/12/23 23:59 PRN PRN Sodium Chloride 0 ml 12/12/23 06:00 Normal Saline 10 Ml Vial IJ 12/12/23 23:59 DIRECTED PRN Sterile Water 0 ml 12/12/23 06:00 Water,Injection,Sterile 10 Ml Vial IJ 12/12/23 23:59 DIRECTED PRN PFSH Active Problems Active Problems: Problem Status Onset Code Right foot pain M79.671 ARIAN (obstructive sleep apnea) G47.33 Hyperlipidemia E78.5 Snoring R06.83 Medical History Medical History Myocarditis 2017, no recurrence. Per pt. states he doesn't know what caused it. Pt. states no longer required to f/u with cardiology Family history of myotonic dystrophy Surgical History Surgical History History of ear surgery insect removal Tobacco Smoking/Tobacco Use Status: Never Passive smoking exposure: Yes Second hand exposure: Yes Alcohol Alcohol Intake: former Substance Use Substance use: Never Substance use type: does not use Vital Signs and Lab Results Vital Signs Most Recent Vital Signs in EMR: Most Recent Vital Signs Temp Pulse Resp BP Pulse Ox 36 C L 64 16 107/72 97 12/12/23 07:50 12/12/23 07:50 12/12/23 07:50 12/12/23 07:50 12/12/23 07:50 Lab Results Blood Type / Crossmatch: No Data to Display Complete Blood Count: No Data to Display Complete Metabolic Panel: No Data to Display Liver Function Panel: No Data to Display Coagulation Panel: No Data to Display Cardiac Panel: No Data to Display Arterial Blood Gas: No Data to Display Venous Blood Gas: No Data to Display Pancreas Panel: No Data to Display Thyroid Panel: No Data to Display Infectious Disease: No Data to Display Blood Cultures: No Data to Display Toxicology Panel: No Data to Display Anesthesia Assessment and Plan Anesthesia History Personal History: No History of Anesthesia Complications Family History: No Family History of Anesthesia Complications Exercise Tolerance Exercise Tolerance: Metabolic Equivalents>4 Pertinent Negatives Pertinent Negatives: No Symptoms of GERD, No Major Cardiovascular Symptoms or Complaints and No Major Pulmonary Symptoms or Complaints Cardiac & Pulmonary Exam Cardiac Exam: Normal S1/S2 Heart Sounds Pulmonary Exam: Clear Bilateral Breath Sounds Implantable Cardiac Device Does patient have a Pacemaker or an ICD?: No Airway Exam Known Difficult Airway: No Mallampati Class: 3 Mouth Opening: Normal (> 3cm) Thyromental Distance: Greater than 3 cm Neck Range of Motion: Full ROM Neck Circumference: Normal Teeth Condition: Normal Dentition ASA Classification ASA Score: ASA 2 Emergency Case?: No NPO Status NPO Status: NPO Clears >2 hours, Solids >8 hours Anesthesia Plan Resuscitation Status: Full Code Anesthesia Technique: General Anesthesia Airway Planned: Natural Airway Monitors Used: Standard Monitors
[2023-12-12 08:27] VITALS: BMI 32.3
--- NOTE | 2023-12-12 09:40 | W.COLOREPORT ---
Date of service: 12/12/23 Time of Service: 09:40 Colonoscopy Report Procedure Description: PROCEDURES PERFORMED: 1. Colonoscopy with hot snare polypectomy PREOPERATIVE DIAGNOSIS: Screening colonoscopy POSTOPERATIVE DIAGNOSIS: Colon polyp, minimal diverticular changes, mild grade 1 internal hemorrhoids SURGEON: Landon Rosas MD INDICATION for procedure: The patient is 48 years old and has never had a colonoscopy. He has no symptoms and due for screening. He has no family history of colon cancer. FINDINGS: Terminal ileum was normal. In the distal transverse colon/proximal descending colon a 3-5 mm sessile polyp was removed with hot snare technique. No other polyps were seen. There is no obvious diverticular disease but mild diverticular changes are noted to be beginning in the sigmoid colon. Minimal grade 1 internal hemorrhoids noted. SURVEILLANCE interval/FOLLOW-UP: 3 - 10 years. If sessile serrate or villous histology, then in 3 years. Otherwise, 7-10 year followup is acceptable. SPECIMENS: yes EBL: Minimal COMPLICATIONS: None QUALITY of prep: Excellent Procedure in detail: The patient gave written consent and was in agreement with the indications, the potential risks as well as the benefits of the procedure. They were taken to the endoscopy suite and laid in the left lateral decubitus position. A timeout was performed and anesthesia was administered which was tolerated well. I started the procedure. Digital rectal and visual examination was performed and grossly within normal limits. A well-lubricated flexible colonoscope was then introduced and passed without any notable difficulty all the way to the cecum identified by the ileocecal valve and the appendiceal orifice. The terminal ileum was intubated and was normal. The scope was then slowly withdrawn with the above-noted findings. The patient tolerated the procedure well and was taken to the PACU in hemodynamically stable condition.
--- NOTE | 2023-12-12 09:40 | W.PM.DSUDISC ---
Date of service: 12/12/23 Time of Service: 09:40 Discharge Plan Disposition Patient Disposition: Home Condition: Good Discharge Details Attending Provider: Sin Rosas Primary Care Provider: Nany Vargas Home Meds and New Rx's Prescriptions: No Action atorvastatin 40 mg tablet See Rx Instructions .ROUTE .COMPLEX Qty: 90 4RF Dose Instruction: TAKE ONE TABLET BY MOUTH EVERY EVENING Rx Instructions: TAKE ONE TABLET BY MOUTH EVERY EVENING bisacodyl [Dulcolax (bisacodyl)] 5 mg tablet,delayed release (DR/EC) 5 mg PO ONCE Qty: 4 0RF polyethylene glycol 3350 17 gram/dose powder 17 g PO DAILY Qty: 238 0RF multivitamin [Daily Multi-Vitamin] 1 EACH tablet 1 tab PO DAILY Discharge Instructions Additional Instructions: FINDINGS: A small polyp was found and removed today. This is why we do the colonoscopies. It is nothing to worry about. You will most likely be recommended to repeat another colonoscopy in 7 to 10 years. Stand Alone Forms: Colonoscopy Post Instructions Activity:: Activity as Tolerated Diet:: As Tolerated
--- NOTE | 2023-12-12 10:00 | BOWEL_PTH ---
PATIENT: Guillermo Tran LOC: [facility] U#:[id number] AGE/SX: 48/M ROOM: RE12/12/[address]: Sin Rosas : 1975 BED: DIS: 12/12/2023 SPEC #: [id number] RECD: 12/12/23 12:55 STATUS: ALECIA RE #: [id number] JIMENA: 12/12/23 10:[address]: Sin Rosas DEPT: Surgical Specimen RECD BY: Roxy Villar ENTERED: 12/12/23 12:56 SP TYPE: Bowel OTHR DR: Nany Vargas, ROSIO Tissues: 1 - BIOPSY BOWEL Procedures: GROSS AND MICRO LEVEL 4 Comments: [id number]
[2023-12-12 10:12] VITALS: BP 108/70; PULSE 66; RESP 12; TEMP 36.3; O2SAT 96
[2023-12-12 10:25] VITALS: BP 118/75; PULSE 65; RESP 16; TEMP 36.2; O2SAT 98
--- NOTE | 2023-12-12 10:51 | W.ANESPOSTOP ---
Postoperative Evaluation Date, Time and Location Date Performed: 12/12/23 Time Performed: 10:51 Patient Location: Day Surgery Unit Vital Signs Most Recent Imported Vital Signs: Most Recent Vital Signs Temp Pulse Resp BP Pulse Ox 36.3 C L 66 12 108/70 96 12/12/23 10:12 12/12/23 10:12 12/12/23 10:12 12/12/23 10:12 12/12/23 10:12 Assessment Mental Status: Awake (Alert & Oriented to Patient Baseline) Airway and Respiratory Function: Patent airway with normal (patient baseline) respiratory exam Cardiovascular Function: Hemodynamically Stable Hydration Status: Adequately Hydrated Nausea & Vomiting: No Nausea or Vomiting Pain: Pt. Denies Any Pain Peripheral Nerve Block: Patient did not receive a nerve block
== END 2023-12-12 11:00 | disposition home or self-care (01) ==
PROVIDERS: PCP Nurse Practitioner Family; Visit Provider Student in an Organized Health Care Education/Training Program
PROC: 0DJD8ZZ Inspection of Lower Intestinal Tract, Via Natural or Artificial Opening Endoscopic (ICD-10-PCS; CPT 45378; principal; 2023-12-12 09:15)
DX: Z12.11 Encounter for screening for malignant neoplasm of colon (principal); K64.0 First degree hemorrhoids; D12.3 Benign neoplasm of transverse colon; K57.30 Diverticulosis of large intestine without perforation or abscess without bleeding
CPT/HCPCS: 45385; 00123; 88305; J2704

== ENCOUNTER 2024-08-12 02:39 | Outpatient (CLI) | payer BC, SELFPAY ==
[2024-08-12 13:19] LABS: Anion Gap 7.2 mmol/L (3-11); BUN 12 mg/dL (7-18); CO2 28.8 mmol/L (21.0-32.0); CREATININE 1.1 mg/dL (0.70-1.30); Calcium 9.1 mg/dL (8.5-10.1); Calculated LDL 82 mg/dL (<100); Chloride 107 mmol/L (98-107); Cholesterol 148 mg/dL (<200); Estimated GFR 81.28 (mL/min/1.73m2); Glucose 122 mg/dL (74-106); HDL Cholesterol 57 mg/dL (40-60); Sodium 143 mmol/L (136-145); Triglyceride 47 mg/dL (<150)
[2024-08-12 19:31] LABS: PSA, Screening 0.6 ng/mL (<=3.5)
== END 2024-08-12 02:40 | disposition home or self-care (01) ==
LOC: LOS 02:39
PROVIDERS: PCP Nurse Practitioner Family; Visit Provider Nurse Practitioner Family
DX: Z00.00 Encounter for general adult medical examination without abnormal findings (principal); E78.2 Mixed hyperlipidemia; G47.33 Obstructive sleep apnea (adult) (pediatric); Z12.5 Encounter for screening for malignant neoplasm of prostate
CPT/HCPCS: 36415; 80048; 80061; 84153